=== PATIENT | female | born 1960 | race Asian ===

== ENCOUNTER → 2019-10-17 09:42 | Outpatient (CLI) | payer BC, SELFPAY ==
--- NOTE | 2019-10-19 15:08 | PM.PFT.1 ---
Pulmonary Function Test Referral & Results Date Patient Seen: 10/17/19 Requesting provider: Felicity Cueva Results: The spirometry demonstrates an FVC of 3.63 L which is 104% of predicted. The FEV1 was measured at 2.99 L which is 110% of predicted. The FEV1/FVC ratio was 82 which is 104% of predicted. Following the administration of bronchodilator there was no appreciable change to above normal numbers. Lung volumes show an SVC of 3.87 L which is 120% of predicted. The diffusing capacity was measured at 21.76 which is 84% of predicted. No hemoglobin value was provided, so no correction for potential anemia could be made, if appropriate. The maximum voluntary ventilation was normal Interpretation: This study demonstrates normal pulmonary function.
== END ==
PROVIDERS: PCP Nurse Practitioner; Visit Provider Nurse Practitioner
DX: J45.909 Unspecified asthma, uncomplicated (principal)
CPT/HCPCS: 94060; 94726; 94729

== ENCOUNTER → 2020-07-05 13:30 | Outpatient (CLI) | payer BC, SELFPAY ==
--- NOTE | 2020-07-05 13:31 | DI.MG.S_ITS ---
BILATERAL DIGITAL SCREENING MAMMOGRAM 3D/2D WITH CAD: 07/05/2020 CLINICAL: Routine screening. Comparison is made to exams dated: 10/09/2015 mammogram, 05/06/2017 mammogram, and 02/20/2019 mammogram - outside location. There are scattered fibroglandular elements in both breasts. Current study was also evaluated with a Computer Aided Detection (CAD) system. No significant masses, calcifications, or other findings are seen in either breast. There has been no significant interval change. IMPRESSION: NEGATIVE There is no mammographic evidence of malignancy. A 1 year screening mammogram is recommended. This exam was interpreted at Station ID: [id number]. NOTE: For mammograms, a report in lay terms will be sent to the patient. Approximately 15% of breast malignancies will not be visualized mammographically. In the management of a palpable breast mass, a negative mammogram must not discourage biopsy of a clinically suspicious lesion. Electronically Signed By: Goyo gambino/marisela:07/06/2020 00:43:51 letter sent: Normal Exam ACR BI-RADS Category 1: Negative 3341F
== END ==
PROVIDERS: PCP Nurse Practitioner; Referring Provider Nurse Practitioner; Visit Provider Nurse Practitioner
DX: Z12.31 Encounter for screening mammogram for malignant neoplasm of breast (principal)
CPT/HCPCS: 77063; 77067

== ENCOUNTER → 2020-08-14 08:56 | Outpatient (CLI) | payer BC, SELFPAY ==
[2020-08-14 09:42] LABS: Hematocrit 44.2 % (36-46); Hemoglobin 14.7 g/dL (12.0-16.0); Mean Corpuscular HGB Conc 33.2 % (30-36); Mean Corpuscular Hemoglobin 29.4 PG (26-34); Mean Corpuscular Volume 88.7 fL (80-100); Platelet Count 264 X10^3/uL (150-400); Red Blood Cell Count 4.99 X10^6/uL (4.0-5.2); Red Cell Distribution Width 13.3 % (11.6-14.8); White Blood Cell Count 5.9 X10^3/uL (4.5-11.0)
[2020-08-14 10:07] LABS: Neutrophils Absolute Manual 2832 /uL (3000-5900); RBC Morphology Normal Morphology; Total Cells Counted 100
[2020-08-14 10:32] LABS: Alanine Aminotransferase 47 IU/L (<35); Albumin 4.4 g/dL (3.5-5.0); Albumin Globulin Ratio 1.5 (1.0-2.8); Alkaline Phosphatase 86 U/L (38-126); Aspartate Aminotransferase 31 IU/L (14-36); BUN Creatinine Ratio 18.7 (6-22); Bilirubin Total 0.9 mg/dL (0.2-1.3); Blood Urea Nitrogen 17 mg/dL (7-17); Calcium 9.7 mg/dL (8.4-10.2); Carbon Dioxide 27 mmol/L (22-32); Chloride 104 mmol/L (98-107); Cholesterol 239 mg/dL (140-199); Estimated Glomerular Filt Rate > 60.0 mL/min (>60); Glucose 101 mg/dL (70-100); HDL Cholesterol 37 mg/dL (40-60); HEMOLYSIS < 15 (0-50); LDL Cholesterol Calculated 137 mg/dL (<100); Potassium 4.4 mmol/L (3.4-5.1); Sodium 137 mmol/L (137-145); Total Protein 7.4 g/dL (6.3-8.2); Triglycerides 325 mg/dL (35-150)
[2020-08-14 10:47] LABS: Free T3, Triiodothyronine Free 3.79 pg/mL (2.77-5.27); Free T4, Direct Thyroxine 0.99 ng/dL (0.78-2.19)
[2020-08-14 11:01] LABS: Thyroid Stimulating Hormone 8.44 uIU/mL (0.47-4.68)
[2020-08-14 11:05] LABS: Testosterone 18.6 ng/dL (5.71-77.0)
[2020-08-14 11:57] LABS: Creatinine Urine Random 102.7 mg/dL
[2020-08-14 12:06] LABS: Microalbumin Urine Random < 0.6 mg/dL (0-1.6)
[2020-08-14 12:28] LABS: Progesterone, Total 0.44 ng/mL
[2020-08-14 12:44] LABS: Estradiol, Total 23.3 pg/mL
[2020-08-14 15:01] LABS: Hep C Virus Ab w/Reflex Quant NEGATIVE s/c (NEGATIVE)
== END ==
PROVIDERS: PCP Nurse Practitioner; Referring Provider Nurse Practitioner Family; Visit Provider Nurse Practitioner Family
DX: N92.6 Irregular menstruation, unspecified (principal); Z72.820 Sleep deprivation; E03.9 Hypothyroidism, unspecified; R05 Cough; Z00.00 Encounter for general adult medical examination without abnormal findings
CPT/HCPCS: 36415; 80053; 80061; 82043; 82570; 82627; 82670; 84144; 84403; 84439; 84443; 84481; 85025; 86803

== ENCOUNTER → 2021-08-26 12:42 | Outpatient (CLI) | payer BC, SELFPAY ==
--- NOTE | 2021-08-26 | DI.MG.S_ITS ---
BILATERAL DIGITAL SCREENING MAMMOGRAM 3D/2D WITH CAD: 08/26/2021 CLINICAL: Routine screening. Family history of breast cancer. Comparison is made to exams dated: 07/05/2020 mammogram - [facility], 02/20/2019 mammogram, and 05/06/2017 mammogram - outside location. There are scattered fibroglandular elements in both breasts. Current study was also evaluated with a Computer Aided Detection (CAD) system. No significant masses, calcifications, or other findings are seen in either breast. There has been no significant interval change. IMPRESSION: NEGATIVE There is no mammographic evidence of malignancy. A 1 year screening mammogram is recommended. This exam was interpreted at Station ID: [id number]. NOTE: For mammograms, a report in lay terms will be sent to the patient. Approximately 15% of breast malignancies will not be visualized mammographically. In the management of a palpable breast mass, a negative mammogram must not discourage biopsy of a clinically suspicious lesion. Electronically Signed By: Meño powell/marisela:08/26/2021 13:50:38 letter sent: Normal Exam ACR BI-RADS Category 1: Negative 3341F
== END ==
PROVIDERS: PCP Nurse Practitioner; Referring Provider Nurse Practitioner; Visit Provider Nurse Practitioner
DX: Z12.31 Encounter for screening mammogram for malignant neoplasm of breast (principal); Z80.3 Family history of malignant neoplasm of breast
CPT/HCPCS: 77063; 77067

== ENCOUNTER → 2022-01-06 09:26 | Outpatient (CLI) | payer BC, SELFPAY ==
[2022-01-06 10:28] LABS: Add Manual Diff / Slide Review NO; Basophils Absolute Auto 100 /uL (0-100); Basophils Percent Auto 0.9 % (0-2); Eosinophils Absolute Auto 200 /uL (0-450); Eosinophils Percent Auto 3.3 % (2-4); Hematocrit 46.2 % (36-46); Hemoglobin 15.4 g/dL (12.0-16.0); Lymphocytes Absolute Auto 2000 /uL (1100-4500); Lymphocytes Percent Auto 36.3 % (25-40); Mean Corpuscular HGB Conc 33.3 % (30-36); Mean Corpuscular Hemoglobin 28.8 PG (26-34); Mean Corpuscular Volume 86.5 fL (80-100); Monocytes Absolute Auto 400 /uL (0-900); Monocytes Percent Auto 6.4 % (3-14); Neutrophils Absolute Auto 3000 /uL (1500-7000); Neutrophils Percent Auto 53.1 % (50-75); Platelet Count 243 X10^3/uL (150-400); Red Blood Cell Count 5.33 X10^6/uL (4.0-5.2); Red Cell Distribution Width 13.3 % (11.6-14.8); White Blood Cell Count 5.6 X10^3/uL (4.5-11.0)
[2022-01-06 10:39] LABS: Creatinine Urine Random 62.6 mg/dL
[2022-01-06 10:43] LABS: Alanine Aminotransferase 21 IU/L (<35); Albumin 4.8 g/dL (3.5-5.0); Albumin Globulin Ratio 1.4 (1.0-2.8); Alkaline Phosphatase 75 U/L (38-126); Aspartate Aminotransferase 21 IU/L (14-36); BUN Creatinine Ratio 20.2 (6-22); Bilirubin Total 0.8 mg/dL (0.2-1.3); Blood Urea Nitrogen 19 mg/dL (7-17); Calcium 9.2 mg/dL (8.4-10.2); Carbon Dioxide 30 mmol/L (22-32); Chloride 103 mmol/L (98-107); Cholesterol 230 mg/dL (140-199); Estimated Glomerular Filt Rate > 60 mL/min (>60); Globulin 3.4 g/dL (1.7-4.1); Glucose 107 mg/dL (80-110); HDL Cholesterol 40 mg/dL (40-60); HEMOLYSIS < 15 (0-50); LDL Cholesterol Calculated 152 mg/dL (<100); Potassium 3.9 mmol/L (3.4-5.1); Sodium 142 mmol/L (137-145); Total Protein 8.2 g/dL (6.3-8.2); Triglycerides 189 mg/dL (35-150)
[2022-01-06 10:47] LABS: Microalbumin Urine Random < 0.6 mg/dL (0-1.6)
[2022-01-06 11:15] LABS: Thyroid Stimulating Hormone 2.59 uIU/mL (0.47-4.68)
== END ==
PROVIDERS: PCP Nurse Practitioner; Referring Provider Nurse Practitioner; Visit Provider Nurse Practitioner
DX: E03.9 Hypothyroidism, unspecified (principal); Z00.00 Encounter for general adult medical examination without abnormal findings
CPT/HCPCS: 36415; 80053; 80061; 82043; 82570; 84443; 85025

== ENCOUNTER → 2022-08-13 08:54 | Outpatient (CLI) | payer BC, SELFPAY ==
[2022-08-13 10:16] LABS: Cholesterol 208 mg/dL (140-199); HDL Cholesterol 34 mg/dL (40-60); LDL Cholesterol Calculated 143 mg/dL (<100); Triglycerides 157 mg/dL (35-150)
== END ==
PROVIDERS: PCP Nurse Practitioner; Referring Provider Nurse Practitioner; Visit Provider Nurse Practitioner
DX: E78.2 Mixed hyperlipidemia (principal)
CPT/HCPCS: 36415; 80061

== ENCOUNTER → 2022-09-01 10:41 | Outpatient (CLI) | payer BC, SELFPAY ==
--- NOTE | 2022-09-01 10:42 | DI.RAD.S_ITS ---
PROCEDURE: XR KNEE RT 3V INDICATIONS: right knee decreased range of motion after fall TECHNIQUE: 3 views of the knee were acquired. COMPARISON: None. FINDINGS: Bones: No fractures or dislocations. No suspicious bony lesions. Femorotibial narrowing and intercondylar osteophytes. Soft tissues: No joint effusion. No suspicious soft tissue calcifications. IMPRESSION: Mild degenerative change. No acute radiographic findings. If pain persists, followup imaging in 5-7 days is recommended to exclude occult fracture. Dictated by: Anisha Owens M.D. on 09/01/2022 at 15:53 Approved by: Anisha Owens M.D. on 09/01/2022 at 15:54
== END ==
PROVIDERS: PCP Nurse Practitioner; Referring Provider Nurse Practitioner; Visit Provider Nurse Practitioner
DX: M25.661 Stiffness of right knee, not elsewhere classified (principal)
CPT/HCPCS: 73562

== ENCOUNTER → 2022-12-05 11:06 | Outpatient (CLI) | payer BC, SELFPAY ==
--- NOTE | 2022-12-05 11:07 | DI.MRI.S_ITS ---
PROCEDURE: MR KNEE RT WO CON INDICATIONS: Unspecified internal derangement of right knee TECHNIQUE: Noncontrast sagittal PD fast spin echo and T2 fast spin echo with fat saturation, sagittal 3-D FLASH with fat saturation; coronal T1 spin echo and PD fast spin echo with fat saturation, and axial PD fast spin echo with fat saturation through the knee. COMPARISON: [facility], CR, XR KNEE RT 3V, 09/01/2022, 10:44. [facility], CR, XR KNEE STANDING BILATERAL, 10/13/2022, 11:52. FINDINGS: Image quality: Excellent. Menisci: There is intrasubstance degeneration of the medial meniscus. No discrete tear of the medial meniscus extending to the articular surface. The lateral meniscus demonstrates normal morphology and internal signal. The meniscal root ligaments appear intact. Cruciate ligaments: The anterior and posterior cruciate ligaments appear intact. Medial structures: The medial collateral ligament appears intact. The semimembranosus tendon insertions and meniscocapsular junction appear intact. Visualized portions of the pes anserinus tendons appear normal. No abnormal bursal fluid. Lateral structures: The lateral collateral ligament, long and short heads of the biceps femoris tendon appear intact. The popliteus tendon appears normal. Iliotibial band appears normal. Anterior structures: The quadriceps and patellar tendons appear intact. Mild quadriceps tendinitis. Patellar alignment is normal. No femoral trochlear dysplasia or ventral trochlear prominence. No edema in the infrapatellar fat pad. Bones and cartilage: No bone marrow contusions or fractures. Mild tricompartmental cartilage thinning and fibrillation. Joint space: There is trace knee joint fluid. No Carrion's cyst. There is a complex cyst in the posterior superior knee joint measuring 1.6 x 3.7 x 2.6 cm (series 8, image 12; series 11, image 21). Normal appearing synovial plicae are incidentally noted. IMPRESSION: 1. Intrasubstance degeneration of the medial meniscus. 2. Mild quadriceps tendinitis. 3. Mild tricompartmental cartilage thinning and fibrillation. 4. A 1.6 x 3.7 x 2.6 cm complex cyst in the posterior superior knee joint. Differential diagnoses are synovial cyst versus ganglion cyst. Dictated by: Matthew Corcoran M.D. on 12/06/2022 at 7:38 Approved by: Matthew Corcoran M.D. on 12/06/2022 at 8:23
== END ==
PROVIDERS: PCP Nurse Practitioner; Referring Provider Orthopaedic Surgery Foot and Ankle Surgery; Visit Provider Orthopaedic Surgery Foot and Ankle Surgery
DX: M23.91 Unspecified internal derangement of right knee (principal); M25.861 Other specified joint disorders, right knee; M76.891 Other specified enthesopathies of right lower limb, excluding foot
CPT/HCPCS: 73721

== ENCOUNTER → 2023-03-08 14:38 | Outpatient (CLI) | payer BC, SELFPAY ==
--- NOTE | 2023-03-08 14:40 | DI.MG.S_ITS ---
BILATERAL DIGITAL SCREENING MAMMOGRAM 3D/2D WITH CAD: 03/08/2023 CLINICAL: Routine screening. Family history of breast cancer. Comparison is made to exams dated: 08/26/2021 mammogram, 07/05/2020 mammogram - [facility], and 02/20/2019 mammogram - outside location. There are scattered areas of fibroglandular density in both breasts (category b / 25%-50% glandular tissue). Current study was also evaluated with a Computer Aided Detection (CAD) system. There is a possible developing asymmetry in the right breast middle depth superior region seen on the mediolateral oblique view only. There is architectural distortion associated with the asymmetry. No other significant masses, calcifications, or other findings are seen in either breast. IMPRESSION: INCOMPLETE: NEEDS ADDITIONAL IMAGING EVALUATION The possible developing asymmetry in the right breast is indeterminate. Additional views with possible ultrasound are recommended. Based on the Tyrer Cuzick model (a risk assessment model) the patient's lifetime risk is 12.3% and her 10 year risk is 5.4%. According to the ACR, ACS, and NCCN guidelines, an annual breast MRI exam along with mammogram is recommended if the patient's lifetime risk is 20% or greater. This exam was interpreted at Station ID: [id number]. NOTE: For mammograms, a report in lay terms will be sent to the patient. Approximately 15% of breast malignancies will not be visualized mammographically. In the management of a palpable breast mass, a negative mammogram must not discourage biopsy of a clinically suspicious lesion. Electronically Signed By: Clementine alves/marisela:03/08/2023 16:52:19 letter sent: Additional Imaging Needed ACR BI-RADS Category 0: Incomplete 3340F
== END ==
PROVIDERS: PCP Nurse Practitioner; Referring Provider Nurse Practitioner; Visit Provider Nurse Practitioner
DX: Z12.31 Encounter for screening mammogram for malignant neoplasm of breast (principal); Z80.3 Family history of malignant neoplasm of breast
CPT/HCPCS: 77063; 77067

== ENCOUNTER → 2023-03-17 13:20 | Outpatient (CLI) | payer BC, SELFPAY ==
--- NOTE | 2023-03-17 13:21 | DI.MG.S_ITS ---
UNILATERAL RIGHT DIGITAL DIAGNOSTIC MAMMOGRAM 3D/2D WITH ADDITIONAL VIEWS: 03/17/2023 CLINICAL: Additional evaluation requested from prior study. Comparison is made to exams dated: 03/08/2023 mammogram, 08/26/2021 mammogram, and 07/05/2020 mammogram - [facility]. There are scattered areas of fibroglandular density in the right breast (category b / 25%-50% glandular tissue). The possible developing asymmetry in the right breast middle depth superior region seen on the mediolateral oblique view only is not reproduced and presumably represented superimposed breast tissue. No other significant masses or calcifications are seen in the breast. IMPRESSION: NEGATIVE There is no mammographic evidence of malignancy. Return to annual mammogram screening schedule is recommended. Based on the Tyrer Cuzick model (a risk assessment model) the patient's lifetime risk is 12.3% and her 10 year risk is 5.4%. According to the ACR, ACS, and NCCN guidelines, an annual breast MRI exam along with mammogram is recommended if the patient's lifetime risk is 20% or greater. This exam was interpreted at Station ID: [id number]. NOTE: For mammograms, a report in lay terms will be sent to the patient. Approximately 15% of breast malignancies will not be visualized mammographically. In the management of a palpable breast mass, a negative mammogram must not discourage biopsy of a clinically suspicious lesion. Electronically Signed By: Meño powell/marisela:03/17/2023 13:54:30 letter sent: Normal Exam ACR BI-RADS Category 1: Negative 3341F
== END ==
PROVIDERS: PCP Nurse Practitioner; Referring Provider Nurse Practitioner; Visit Provider Nurse Practitioner
DX: R92.8 Other abnormal and inconclusive findings on diagnostic imaging of breast (principal)
CPT/HCPCS: 77065; G0279

== ENCOUNTER → 2023-04-01 08:52 | Outpatient (CLI) | payer BC, SELFPAY ==
[2023-04-01 09:50] LABS: Add Manual Diff / Slide Review NO; Basophils Absolute Auto 100 /uL (0-100); Eosinophils Absolute Auto 200 /uL (0-450); Eosinophils Percent Auto 3.7 % (2-4); Hematocrit 43.9 % (36-46); Hemoglobin 14.8 g/dL (12.0-16.0); Lymphocytes Absolute Auto 2100 /uL (1100-4500); Mean Corpuscular HGB Conc 33.6 % (30-36); Mean Corpuscular Hemoglobin 29.1 PG (26-34); Mean Corpuscular Volume 86.5 fL (80-100); Monocytes Absolute Auto 500 /uL (0-900); Monocytes Percent Auto 8.4 % (3-14); Neutrophils Absolute Auto 3200 /uL (1500-7000); Neutrophils Percent Auto 51.9 % (50-75); Platelet Count 264 X10^3/uL (150-400); Red Blood Cell Count 5.08 X10^6/uL (4.0-5.2); Red Cell Distribution Width 13.4 % (11.6-14.8); White Blood Cell Count 6.1 X10^3/uL (4.5-11.0)
[2023-04-01 10:09] LABS: Creatinine Urine Random 143.8 mg/dL
[2023-04-01 10:18] LABS: Alanine Aminotransferase 25 IU/L (<35); Albumin 4.3 g/dL (3.5-5.0); Albumin Globulin Ratio 1.4 (1.0-2.8); Alkaline Phosphatase 74 U/L (38-126); Aspartate Aminotransferase 21 IU/L (14-36); BUN Creatinine Ratio 23.3 (6-22); Blood Urea Nitrogen 21 mg/dL (7-17); Calcium 9.4 mg/dL (8.4-10.2); Carbon Dioxide 30 mmol/L (22-32); Chloride 103 mmol/L (98-107); Cholesterol 218 mg/dL (140-199); Estimated Glomerular Filt Rate > 60 mL/min (>60); Globulin 3.1 g/dL (1.7-4.1); Glucose 100 mg/dL (80-110); HDL Cholesterol 37 mg/dL (40-60); HEMOLYSIS < 15 (0-50); LDL Cholesterol Calculated 136 mg/dL (<100); Potassium 4.7 mmol/L (3.4-5.1); Sodium 138 mmol/L (137-145); Total Protein 7.4 g/dL (6.3-8.2); Triglycerides 224 mg/dL (35-150)
[2023-04-01 10:18] LABS: Microalbumin Urine Random < 0.6 mg/dL (0-1.6)
[2023-04-01 10:26] LABS: Free T4, Direct Thyroxine 1.72 ng/dL (0.78-2.19)
[2023-04-01 10:40] LABS: Thyroid Stimulating Hormone < 0.015 uIU/mL (0.47-4.68)
== END ==
PROVIDERS: PCP Nurse Practitioner; Referring Provider Nurse Practitioner; Visit Provider Nurse Practitioner
DX: Z00.00 Encounter for general adult medical examination without abnormal findings (principal)
CPT/HCPCS: 36415; 80053; 80061; 82043; 82570; 84439; 84443; 84481; 85025

== ENCOUNTER 2023-10-11 07:55 | Day surgery (SDC) | payer BC, SELFPAY ==
--- NOTE | 2023-10-11 | PATH_ITS ---
[facility] Accession Number: [id number] No. of containers..02 Tissue . 01 Material submitted: . PART A: colon - ASCENDING COLON POLYPS PART B: rectum - RECTUM POLYP . 01 Diagnosis: A. Ascending Colon Polyps: Tubular adenoma. Colonic mucosa with no diagnostic abnormality, consistent with polypoid redundancy x1. . B. Rectal Polyp: Tubular adenoma. MRV 10/13/2023 1549 Local . 01 Electronically signed: . James Buenrostro MD, PhD, Pathologist NPI- [id number] . 01 Gross description: . Part A: ASCENDING COLON POLYPS: Received in formalin are 2 fragment(s) of wilson, soft tissue measuring 0.3 x 0.2 x 0.2 cm to 0.4 x 0.2 x 0.2 cm submitted entirely in 1 cassette(s) Part B: RECTUM POLYP: Received in formalin are 2 fragment(s) of wilson, soft tissue measuring 0.2 x 0.2 x 0.2 cm to 0.5 x 0.3 x 0.3 cm submitted entirely in 1 cassette(s) /NATALI 10/12/2023 1935 Local . 01 Pathologist provided ICD-10: D12.2, D12.8 . 01 CPT . 881659, [id number] Specimen Comment: A courtesy copy of this report has been sent to [phone] Performed at: 01 [facility]ending [facility] to [facility] [address] [place] [address], [place], [place] [id number] MD Jesse De Souza MD Phone: [phone]
[2023-10-11 08:39] VITALS: BP 124/81; PULSE 65; RESP 16; TEMP 36.2; O2SAT 97; BMI 28.3
[2023-10-11] MEDS: LACTATED RINGERS 1,000 ML 42 ML IV (08:44)
--- NOTE | 2023-10-11 09:16 | PM.HP.1 ---
History of Present Illness History of Present Illness Date Patient Seen: 10/11/23 Time Patient Seen: 09:16 Chief complaint: Screening Colonoscopy Narrative: 63-year-old woman here for screening colonoscopy. Last colonoscopy 12 years ago in [place] unremarkable. No family history of intestinal malignancy. No abdominal concerns today. [facility] Medical History Mixed hyperlipidemia Chicken pox (~1960) Hypothyroidism (~1997) Family History Father History of heart disease Mother Hypertension Stroke Grandfather History of heart disease Social History household members: spouse Smoking Status: Never smoker alcohol intake: current Meds Home Medications and Allergies Home Medications Medication Instructions Recorded Confirmed Type albuterol sulfate 90 mcg/actuation 1 inh inhalation Q4-6H PRN 06/07/22 10/11/23 Rx aerosol inhaler shortness of breath #18 grams montelukast 10 mg tablet 10 mg PO BEDTIME #90 tabs 08/16/22 10/11/23 Rx fluticasone 100 mcg-salmeterol 50 1 inh inhalation Q12H #60 ea 01/31/23 10/11/23 Rx mcg/dose blistr powdr for inhalation levothyroxine 88 mcg tablet 88 mcg PO DAILY #90 tabs 04/04/23 10/11/23 Rx clobetasol 0.05 % topical lotion 1 applic topical BID PRN insect 06/10/23 10/11/23 Rx in pump bite #68 grams Allergies Allergy/AdvReac Type Severity Reaction Status Date / Time No Known Drug Allergies Allergy Verified 10/11/23 08:28 Exam Vital Signs (past 8 hours): - 10/11/23 08:39 Temperature 97.1 F L Pulse Rate 65 Respiratory Rate 16 Blood Pressure 124/81 Pulse Oximetry 97 Oxygen Delivery Method Room Air Oxygen Delivery Method Room Air Narrative Exam Narrative: General adult woman alert oriented no acute distress Chest nonlabored respiration Extremities warm well perfused Assessment & Plan Assessment & Plan narrative: The patient requires colorectal screening and colonoscopy is recommended. Technical details were discussed. Risks, benefits, alternatives explained. Risks including but not limited to myocardial infarction, aspiration, bleeding, pain, missed lesion, incomplete examination, need for further radiographic studies, colonic perforation, and need for major abdominal surgery were discussed. All questions were answered to their satisfaction, and they are in agreement with this plan.
--- NOTE | 2023-10-11 09:27 | PM.OP.COLON ---
Operative Date/Time/Diagnoses Date of procedure: 10/11/23 Time of procedure: 09:27 Pre-op diagnosis: Colorectal screening Procedure & Clinicians Study performed: Colonoscopy Same procedure as scheduled: Yes Procedure Notes Procedure in detail: The history and physical was performed/updated and the patient is ASA class is 2. The procedure was discussed in detail with the patient. Potential risks complications including infection, bleeding, missed diagnosis, perforation, need for surgery, and were explained. Their questions were answered and informed consent was obtained. Patient was brought to the procedure room and placed standard monitoring equipment. The patient's vital signs were monitored continuously throughout the entire procedure. Prior to starting time-out was performed. The patient was placed in the left lateral recumbent position. Procedural sedation was administered by anesthesia. Examination began with a thorough inspection of the perianal area there was no evidence of fissures, fistulae, external hemorrhoids or cutaneous malignancy. The colonoscopy scope was then placed into the anal canal and was advanced to the cecum, which was identified by the ileocecal valve, the appendiceal orifice and the confluence of the taenia. The scope was then slowly withdrawn examining colon thoroughly in all directions, irrigating it of any residual stool. The scope was retroflexed within the rectum The patient tolerated the procedure well. They will be discharged once criteria are met. The prep was of good/excellent quality. The withdrawl time was 12 minutes. FINDINGS Ascending colon-3 mm polyps x2 removed with biopsy forceps Rectum-8 mm polyp removed with cold snare Specimen(s): other (Ascending colon polyps x2, rectal polyp) Impression: Colonic polyps x3 Post-procedure Plan for aftercare: Follow-up is dependent on pathology findings. Disposition: same day surgery
[2023-10-11 09:50] VITALS: BP 113/76; PULSE 52; RESP 12; TEMP 36.6; O2SAT 97
[2023-10-11 09:55] VITALS: BP 123/78; PULSE 58; RESP 13; O2SAT 99
[2023-10-11 10:00] VITALS: BP 116/73; PULSE 54; RESP 15; TEMP 36.7; O2SAT 100
[2023-10-11 10:05] VITALS: BP 118/68; PULSE 65; RESP 16; TEMP 36.1; O2SAT 96
--- NOTE | 2023-10-11 10:17 | SUR.PHASEII ---
Pt awaiting to pick her up. Unable to get into contact with him. Pt is trying to text him. RN attempted to call him also. Pt is awake and dressed and denies any complaints.
--- NOTE | 2023-10-11 10:22 | SUR.PHASEII ---
Pt found her ride and he is going to come around front and pick her up.
== END 2023-10-11 10:23 | disposition home or self-care (01) ==
PROVIDERS: PCP Nurse Practitioner; Referring Provider Surgery; Visit Provider Surgery
PROC: 0DJD8ZZ Inspection of Lower Intestinal Tract, Via Natural or Artificial Opening Endoscopic (ICD-10-PCS; CPT 45378; principal; 2023-10-11 09:15)
DX: Z12.11 Encounter for screening for malignant neoplasm of colon (principal); D12.2 Benign neoplasm of ascending colon; D12.8 Benign neoplasm of rectum
CPT/HCPCS: 45385; 45380; J2704

== ENCOUNTER → 2024-01-26 09:07 | Outpatient (CLI) | payer OTHER, SELFPAY ==
[2024-01-26 13:31] LABS: Thyroid Stimulating Hormone 4.49 uIU/mL (0.47-4.68)
== END ==
PROVIDERS: PCP Nurse Practitioner; Referring Provider Nurse Practitioner; Visit Provider Nurse Practitioner
DX: E03.9 Hypothyroidism, unspecified (principal)
CPT/HCPCS: 36415; 84443

== ENCOUNTER → 2024-03-16 14:21 | Outpatient (CLI) | payer OTHER, SELFPAY ==
--- NOTE | 2024-03-16 | DI.MG.S_ITS ---
BILATERAL DIGITAL SCREENING MAMMOGRAM 3D/2D WITH CAD: 03/16/2024 CLINICAL: Routine screening. Family history of breast cancer. Comparison is made to exams dated: 03/17/2023 mammogram, 03/08/2023 mammogram, 08/26/2021 mammogram, and 07/05/2020 mammogram - [facility]. There are scattered areas of fibroglandular density in both breasts (category b / 25%-50% glandular tissue). Current study was also evaluated with a Computer Aided Detection (CAD) system. No significant masses, calcifications, or other findings are seen in either breast. There has been no significant interval change. IMPRESSION: NEGATIVE There is no mammographic evidence of malignancy. A 1 year screening mammogram is recommended. Based on the Tyrer Cuzick model (a risk assessment model) the patient's lifetime risk is 11.9% and her 10 year risk is 5.4%. According to the ACR, ACS, and NCCN guidelines, an annual breast MRI exam along with mammogram is recommended if the patient's lifetime risk is 20% or greater. This exam was interpreted at Station ID: [id number]. NOTE: For mammograms, a report in lay terms will be sent to the patient. Approximately 15% of breast malignancies will not be visualized mammographically. In the management of a palpable breast mass, a negative mammogram must not discourage biopsy of a clinically suspicious lesion. Electronically Signed By: Anisha santos/marisela:03/16/2024 16:11:39 letter sent: Normal Exam ACR BI-RADS Category 1: Negative 3341F
== END ==
LOC: MAMMO 14:22
PROVIDERS: PCP Nurse Practitioner; Referring Provider Nurse Practitioner; Visit Provider Nurse Practitioner
DX: Z12.31 Encounter for screening mammogram for malignant neoplasm of breast (principal); Z80.3 Family history of malignant neoplasm of breast; R92.323 Mammographic fibroglandular density, bilateral breasts
CPT/HCPCS: 77063; 77067

== ENCOUNTER → 2024-04-27 09:43 | Outpatient (CLI) | payer BC, SELFPAY ==
[2024-04-27 11:07] LABS: Alanine Aminotransferase 17 IU/L (<35); Albumin 4.4 g/dL (3.5-5.0); Albumin Globulin Ratio 1.6 (1.0-2.8); Alkaline Phosphatase 79 U/L (38-126); Aspartate Aminotransferase 21 IU/L (14-36); Bilirubin Total 0.7 mg/dL (0.2-1.3); Blood Urea Nitrogen 19 mg/dL (7-17); Calcium 9.2 mg/dL (8.4-10.2); Carbon Dioxide 25 mmol/L (22-32); Chloride 107 mmol/L (98-107); Cholesterol 226 mg/dL (140-199); Estimated Glomerular Filt Rate > 60 mL/min (>60); Globulin 2.7 g/dL (1.7-4.1); Glucose 87 mg/dL (80-110); HDL Cholesterol 43 mg/dL (40-60); HEMOLYSIS < 15 (0-50); LDL Cholesterol Calculated 150 mg/dL (<100); Potassium 4.6 mmol/L (3.4-5.1); Sodium 138 mmol/L (137-145); Total Protein 7.1 g/dL (6.3-8.2); Triglycerides 165 mg/dL (35-150)
[2024-04-27 11:09] LABS: Add Manual Diff / Slide Review NO; Basophils Absolute Auto 100 /uL (0-100); Basophils Percent Auto 1.2 % (0-2); Eosinophils Absolute Auto 300 /uL (0-450); Eosinophils Percent Auto 5.3 % (2-4); Hematocrit 44.8 % (36-46); Hemoglobin 14.9 g/dL (12.0-16.0); Lymphocytes Absolute Auto 2300 /uL (1100-4500); Lymphocytes Percent Auto 40.5 % (25-40); Mean Corpuscular HGB Conc 33.2 % (30-36); Mean Corpuscular Hemoglobin 29.4 PG (26-34); Mean Corpuscular Volume 88.5 fL (80-100); Monocytes Absolute Auto 400 /uL (0-900); Monocytes Percent Auto 6.6 % (3-14); Neutrophils Absolute Auto 2700 /uL (1500-7000); Neutrophils Percent Auto 46.4 % (50-75); Platelet Count 231 X10^3/uL (150-400); Red Blood Cell Count 5.06 X10^6/uL (4.0-5.2); Red Cell Distribution Width 13.5 % (11.6-14.8); White Blood Cell Count 5.7 X10^3/uL (4.5-11.0)
[2024-04-27 11:19] LABS: Creatinine Urine Random 45.19 mg/dL
[2024-04-27 11:28] LABS: Microalbumin Urine Random < 0.6 mg/dL (0-1.6)
[2024-04-27 11:35] LABS: Free T3, Triiodothyronine Free 3.86 pg/mL (2.77-5.27); Free T4, Direct Thyroxine 1.32 ng/dL (0.78-2.19)
[2024-04-27 11:49] LABS: Thyroid Stimulating Hormone 0.889 uIU/mL (0.47-4.68)
== END ==
PROVIDERS: PCP Nurse Practitioner; Referring Provider Nurse Practitioner; Visit Provider Nurse Practitioner
DX: Z00.00 Encounter for general adult medical examination without abnormal findings (principal)
CPT/HCPCS: 36415; 80053; 80061; 82043; 82570; 84439; 84443; 84481; 85025